=== PATIENT | male | born 1960 | race Caucasian/White ===

== ENCOUNTER 2016-09-17 18:22 | Emergency (ER) | payer MEDICARE, MEDICAID ==
--- NOTE | ~2016-09-17 | ER ---
PATIENT'S NAME: YUE HSU [facility] AGE: 56 Y [address] ROOM: [place] [address] LOCATION: [facility] ADMIT DATE: 09/17/2016 ER/Outpatient Report DISCHARGE DATE: 09/17/2016 FAMILY PHYSICIAN: Physician, Unknown ATTENDING PHYSICIAN: Andrew Rosales TIME OF ARRIVAL: 1824 hours. TIME OF EXAM: 1824 hours. CHIEF COMPLAINT: Choking episode. HISTORY OF PRESENT ILLNESS: The patient comes accompanied by employee at [facility] and reports approximately 1 hour prior to arrival, the patient was drinking boost, drank it too quickly, and then had a choking episode, that lasted approximately 10 minutes. He did not vomit at that time. He had not been ill prior to this episode. Worker reports that their policy is for him to be evaluated if he has a choking episode. She does not notice any change in his behavior at this time. ALLERGIES: ALLERGIES ARE ON HIS CHART AND REVIEWED BY ME. CURRENT MEDICATIONS: Current medications are on his chart and reviewed by me. PAST MEDICAL HISTORY: Profound mental retardation, autism, scoliosis, anemia, neurogenic bladder, and seizure disorder. SOCIAL HISTORY: He is a resident with [facility]. REVIEW OF SYSTEMS: Negative other than those mentioned in the HPI. PHYSICAL EXAMINATION: VITAL SIGNS: Pulse is 84, respirations 20, temp of 97.6, tympanic, and O2 sats are 98% on room air, he refused to be weighed. GENERAL: He is awake and alert. He is nonverbal, which is not different, according to the masonry inspector that is with him. No drooling is noted. PATIENT'S NAME: YUE HSU [facility] AGE: 56 Y [address] ROOM: [place], [place] [address] LOCATION: [facility] ADMIT DATE: 09/17/2016 ER/Outpatient Report DISCHARGE DATE: 09/17/2016 FAMILY PHYSICIAN: Physician, Unknown ATTENDING PHYSICIAN: Andrew Rosales LUNGS: His lungs sounds are clear throughout. His respirations are even and nonlabored. HEART: Tones are regular. LABORATORY DATA: Chest x-ray was completed. No acute abnormality is seen. IMPRESSION: Choking episode on liquids. PLAN: Home. Continue his current treatment plan. Follow up with primary provider in 2 to 3 days as needed. Worker verbalized understanding. ERICH AGEE APRN FOR MD JANIS ALLEN/modl /[id number] d: 09/18/16 0112 t: 09/19/16 1821, OUTPATIENT REPORT
[~2016-09-17 18:22] MED LIST: ACYCLOVIR400 MG PO; ALBUTEROL2.5 MG/31 INH; APRESOLINE25 MG PO; ATARAX25 MG PO; COLACE100 MG PO; KLONOPIN0.5 MG PO; LAMICTAL200 MG PO; MAG119MX MM; MULTIVITAMINS1 EAC1 PO; REMERON15 MG PO; SEROQUEL XR150 MG PO; SEROQUEL XR400 MG PO; TRIAMCINOLONE 015 GM TOP
[2016-12-06] MEDS ORDERED: BOOST237 ML PO (08:53)
== END 2016-09-17 18:56 | disposition disaster alternative care site (69) ==
LOC: GMED 18:22
DX: T17.928A Food in respiratory tract, part unspecified causing other injury, initial encounter (principal); F73 Profound intellectual disabilities; F84.0 Autistic disorder; M41.9 Scoliosis, unspecified; G40.909 Epilepsy, unspecified, not intractable, without status epilepticus; Z88.8 Allergy status to other drugs, medicaments and biological substances

== ENCOUNTER 2016-10-07 10:50 | Inpatient (IN) | payer MEDICARE, MEDICAID ==
[~2016-10-07] VITALS: Ht 167.6 cm; Wt 70.2 kg
--- NOTE | ~2016-10-07 | HP ---
PATIENT'S NAME: YUE HSU [facility] AGE: 56 Y [address] ROOM: [place] [address] LOCATION: [facility] ADMIT DATE: 10/07/2016 History & Physical DISCHARGE DATE: FAMILY PHYSICIAN: Cheko Sparrow MD ATTENDING PHYSICIAN: VIK LAGUERRE DATE OF SERVICE: CHIEF COMPLAINT: Cough, fever, pneumonia. HISTORY OF PRESENT ILLNESS: This is a 56-year-old male with history of severe mental retardation and lives in a facility nearby requiring full assistance at all times. is brought here by his caretakers after he was complaining of persistent cough over the past 24 hours and temperature spike with a temperature max of about 101 measured a couple times earlier in the morning. The patient's digester hand also reports that he had been showing increasing agitation over the past day or so as well. The patient is nonverbal, and does appear agitated during my evaluation but otherwise nontoxic appearing. Otherwise, there is no report of significant shortness of breath, chest pain, dizziness, lightheadedness, dysuria, frequency of urination. PAST MEDICAL HISTORY: Profound mental retardation, scoliosis, autism, generalized anxiety disorder. SOCIAL HISTORY: The patient is a resident at [facility] under their care. FAMILY HISTORY: Unable to gather due to the patient's mental status and digester hand's does not know much about his family status. REVIEW OF SYSTEMS: Cough and fever reported. Further review of systems was not able to be conducted due to patient's mental status. PHYSICAL EXAMINATION: VITAL SIGNS: Weight 45 kg, blood pressure 118/64, pulse 96, respiratory rate 20, temperature 100.4, 96% on room air. GENERAL: The patient is agitated but awake. Appears to be at baseline mental status anyway. HEENT: Moist mucous membranes. No scleral icterus. Conjunctival pallor noted. PATIENT'S NAME: YUE HSU [facility] AGE: 56 Y [address] ROOM: [place] [address] LOCATION: [facility] ADMIT DATE: 10/07/2016 History & Physical DISCHARGE DATE: FAMILY PHYSICIAN: Cheko Sparrow MD ATTENDING PHYSICIAN: VIK LAGUERRE SKIN: Without rash or lesions. CHEST: Clear to auscultation bilaterally with overall diminished breath sounds. HEART: S1, S2. Regular rate and rhythm. ABDOMEN: Soft, nontender, nondistended. Positive bowel sounds. NEUROLOGIC: Grossly nonfocal and negative for new changes but he does have contraction of his upper extremities that is chronic for him. MUSCULOSKELETAL: No joint pain, effusion, tenderness, or erythema noted. LABORATORY DATA: White blood cell count of 13.6. Chest x-ray showing possible right perihilar infiltrate. ASSESSMENT AND PLAN: 1. Pneumonia, bacterial organism unspecified. We will treat as community- acquired with doxycycline 100 mg IV b.i.d. and monitor. We will avoid to try to use any antibiotics that can potentially prolong QTc since the patient is on high-dose Seroquel. 2. Sepsis secondary to pneumonia with a white blood cell of 13.6 and temperature of 101 noted on presentation. We will manage as above. 3. Profound mental retardation. We will continue his home medications. 4. Agitation. Just somewhat increased due to his acute illness. Continue to monitor and also continue his home medications. 5. Deep venous thrombosis prophylaxis. We will use subcu Lovenox 40 mg daily. MD SHARON COOPER/soniya /[id number] D: 832 T: 431 HISTORY & PHYSICAL
--- NOTE | ~2016-10-07 | ER ---
PATIENT'S NAME: YUE HSU [facility] AGE: 56 Y [address] ROOM: [place] [address] LOCATION: [facility] [place] ADMIT DATE: 10/07/2016 ER/Outpatient Report DISCHARGE DATE: FAMILY PHYSICIAN: Cheko Sparrow MD ATTENDING PHYSICIAN: VIK MARTINEZ Time of Arrival: 1050 hours. Time Seen: 1115 hours. IDENTIFICATION: A 56-year-old male. CHIEF COMPLAINT: Fever and weakness. HISTORY OF PRESENT ILLNESS: The patient is a 56-year-old male with profound MR and autism from [facility]. The patient has had cough, nonproductive; fever; lethargy; and weakness this morning. Temperature was reported as 101. The patient has had pneumonia, requiring hospitalization in the past. The patient is nonverbal, so history was obtained from caregivers. ALLERGIES: THORAZINE, MELLARIL, AND KEFLEX. HE IS TO AVOID ERYTHROMYCIN, AZITHROMYCIN, AND BIAXIN WHILE ON SEROQUEL. CURRENT MEDICATIONS: 1. Multivitamin daily. 2. Colace 100 mg daily. 3. Albuterol nebulizer b.i.d. and q.i.d. p.r.n. 4. Triamcinolone cream b.i.d. 5. Magic mouthwash p.r.n. 6. Lamictal 200 mg b.i.d. 7. Klonopin 1 mg at h.s. 8. Remeron 15 mg at h.s. 9. Seroquel XR 150 mg at h.s. and 400 mg at h.s. 10. Vistaril 25 mg 2 tabs at h.s. MEDICAL PROBLEMS: Profound MR, autism, scoliosis, chronic constipation, anemia, pneumonia, gingivitis, neurogenic bladder, history of seizure disorder, history of rib fractures, history of generalized anxiety disorder, intermittent explosive disorder, schizophrenia, depression, tardive dyskinesia, and neurodermatitis. REVIEW OF SYSTEMS: PATIENT'S NAME: YUE HSU [facility] AGE: 56 Y [address] ROOM: [place] [address] LOCATION: [facility] [place] ADMIT DATE: 10/07/2016 ER/Outpatient Report DISCHARGE DATE: FAMILY PHYSICIAN: Cheko Sparrow MD ATTENDING PHYSICIAN: VIK MARTINEZ Unable to obtain from the patient. SOCIAL HISTORY: The patient resides at [facility]. Tobacco use, denies. Alcohol use, denies. Drug use, denies. FAMILY HISTORY: Unable to obtain from the patient. PHYSICAL EXAMINATION: VITAL SIGNS: Weight 45 kg. Blood pressure 113/64, pulse 96, respirations 20, temperature 100.4, and saturations 96% on room air. GENERAL: This is a 56-year-old male, nonverbal, who appears a little bit lethargic on an initial exam. HEENT: Head: Normocephalic, atraumatic. Ears: TMs not visualized. Eyes: Pupils equal and reactive to light and accommodation. Extraocular movements intact. Nose: Mucosa pink. No lesions. Mouth: No lesions. Pharynx benign. NECK: Supple. No lymphadenopathy. LUNGS: Diminished on the right lower. HEART: Regular rate and rhythm. ABDOMEN: Bowel sounds present. Soft, nondistended, nontender. SKIN: [place], warm, and dry. Some scabbed lesions are present on his lower extremities. No erythema. NEURO: The patient is alert. He has no focal deficit. LABORATORY DATA: Chest x-ray reveals a right perihilar infiltrate, pending Radiology over-read, is a one-view chest x-ray. Procalcitonin 0.08. Hemoglobin 14.8, hematocrit 44.4, platelets 161, and white count 13.6 with 74% segs and 13% bands. Sodium 140, potassium 4.3, chloride 106, CO2 24, BUN 13, creatinine 1, and blood sugar 122. Liver enzymes normal. Influenza A and B negative. EKG: Sinus rhythm at 90 beats per minute. No acute ST elevation. Nonspecific T-wave changes. QTc 386. IMPRESSION: Pneumonia. PLAN: Outpatient admission for IV antibiotics, as the patient does meet SIRS criteria, but not sepsis criteria and the patient is more lethargic and not his usual self according to the caregivers. Dr. Martinez, hospitalist, evaluated the patient in the emergency room and planned for admission. PATIENT'S NAME: YUE HSU [facility] AGE: 56 Y [address] ROOM: [place] [address] LOCATION: [facility] [place] ADMIT DATE: 10/07/2016 ER/Outpatient Report DISCHARGE DATE: FAMILY PHYSICIAN: Cheko Sparrow MD ATTENDING PHYSICIAN: VIK MARTINEZ MD MODE SYED/wadel /[id number] d: 10/07/162014 t: 10/11/16 0642, OUTPATIENT REPORT
--- NOTE | ~2016-10-07 | DS ---
PATIENT'S NAME: YUE HSU [facility] AGE: 56 Y [address] ROOM: [place] [address] LOCATION: [facility] [place] ADMIT DATE: 10/07/2016 Discharge Summary DISCHARGE DATE: 10/10/2016 FAMILY PHYSICIAN: Cheko Sparrow MD ATTENDING PHYSICIAN: Lori Martinez PRIMARY DIAGNOSES: 1. Sepsis. 2. Right lower lobe pneumonia. 3. Dysphagia with recurrent aspiration. 4. Acute encephalopathy. 5. Developmental delay with profound mental retardation. 6. Acute agitation. OPERATIONS/PROCEDURES: Modified barium swallow was performed 10/10/2016, which demonstrated aspiration upon swallowing, honey-consistency liquid, moderate pooling was noted partially clearing with multiple secondary swallows. HISTORY OF PRESENTING ILLNESS/REASON FOR ADMISSION: Please refer to the H and P dictated 10/07/2016. HOSPITAL COURSE: The patient was admitted to the hospital as noted above with a presumptive diagnosis of sepsis and pneumonia. He was suspected to be aspirating chronically. He was placed on broad-spectrum antibiotic therapy. His clinical condition improved. Speech Therapy was consulted and a modified barium swallow was carried out. He did have adjustments made to his dietary regimen with strict instructions to keep him elevated at 90 degrees when eating and close observation with plenty of time between bites. I did discuss at some length with the patient's [id number] regarding the possibility of feeding tube placement. He stated that this had been brought up in the past, but that they had declined it citing that they would like to avoid it unless absolutely necessary. I did discuss that he would be likely to continue to recurrently aspirate and would be at risk for rehospitalization. He expressed understanding, but reinforces his desire for no feeding tube. By the end of the 4th day of his hospital stay, it was felt he would be stable enough for discharge back to the [facility] with plans for clinical followup with his primary care provider, Dr. Sparrow. DISCHARGE INSTRUCTIONS: Diet, pureed foods, allow extra time between bites PATIENT'S NAME: YUE HSU [facility] AGE: 56 Y [address] ROOM: [place] [address] LOCATION: [facility] [place] ADMIT DATE: 10/07/2016 Discharge Summary DISCHARGE DATE: 10/10/2016 FAMILY PHYSICIAN: Cheko Sparrow MD ATTENDING PHYSICIAN: Lori Martinez with sips and double and multiple swallows up at 90 degrees for all meals. DISCHARGE MEDICATIONS: 1. Clonazepam 1 mg p.o. q.h.s. 2. Colace 100 mg p.o. daily. 3. Atarax 50 mg p.o. q.h.s. 4. Lamictal 200 mg p.o. b.i.d. 5. Remeron 15 mg p.o. q.h.s. 6. Multivitamin daily. 7. Seroquel 400 mg p.o. q.h.s. and 150 mg at h.s. additionally. 8. Albuterol per nebulizer b.i.d. 9. Triamcinolone cream applied topically b.i.d. p.r.n. 10. Magic Mouthwash t.i.d. before meals. 11. Levofloxacin 750 mg p.o. daily x5 more days. 12. Probiotic daily while on antibiotics. FOLLOW UP: He will follow up with Dr. Sparrow in 3 days. CONDITION ON DISCHARGE: Fair. Total time spent on discharge process was 60 minutes. MD FELIPA FIGUEROA/wadel /[id number] d: 10/14/16 0510 t: 10/24/16 2359, DISCHARGE SUMMARY
[2016-10-07 11:42] LABS: HEMATOCRIT 44.4 % (37.0-53.0); HEMOGLOBIN 14.8 g/dL (12.0-17.0); MCH 30.5 pg (27.0-34.0); MCHC 33.3 gm/dL (32.0-36.5); MCV 91.4 fl (83.0-98.0); MPV 9.5 fl (9.4-12.4); PLATELET COUNT 161 K/uL (150-450); RBC 4.86 M/uL (4.00-6.00); RDW-CV 12.7 % (11.9-14.6); WBC 13.6 K/uL (4.0-11.0)
[2016-10-07 12:06] LABS: ALBUMIN 3.2 gm/dL (3.5-5.0); ALK PHOS 82 IU/L (33-138); ALT 32 IU/L (12-78); ANION GAP 14.3 (10.0-19.0); AST 26 IU/L (10-40); BLOOD UREA NITROGEN 13 mg/dL (6-24); CALCIUM 8.4 mg/dL (8.5-10.5); CHLORIDE 106 mMol/L (96-110); CO2 24 mMol/L (22-32); ESTIMATED GFR (MDRD EQUATION) > 60; POTASSIUM 4.3 mMol/L (3.7-5.1); SODIUM 140 mMol/L (135-145); TOTAL BILIRUBIN 0.2 mg/dL (0.0-1.5); TOTAL PROTEIN 7.1 g/dL (6.0-8.4)
[2016-10-07 12:22] LABS: ABSOLUTE NEUTROPHIL CT (ANC) 11.8 K/uL (1.4-9.0); BANDED NEUTROPHIL # 1.8 K/uL (0.0-0.1); BANDED NEUTROPHILS % 13 %; LYMPHOCYTE # 0.3 K/uL (0.8-4.0); LYMPHOCYTE % 2 %; MONOCYTE # 1.5 K/uL (0.0-1.0); SEGMENTED NEUTROPHIL # 10.1 K/uL (1.4-9.0); SEGMENTED NEUTROPHIL % 74 %
--- NOTE | 2016-10-07 14:56 | NUR ---
D: pt admitted from ER for possible aspiration pneumonia. [facility] and is non-verbal. Hx given by caregiver. Pt has anxiety, depression, ADHD, schitzophrenia, autism, Mental delay, fatty liver, multiple aspiration pneumonia admissions in the past, neurogenic bladder, hx of rib fx, seizures, anorexia, anemia, constipation, sleep pattern disorder, and is on a mechanical soft thicken liquid diet. 1 assist to ambulate. Pt is constantly moving his arms and legs/caregiver states that is normal. Crush pills.
--- NOTE | 2016-10-07 16:37 | NUR ---
D: pt non-verbal. No skin issues, no void yet. Bed alarm on for safety. Mechanical soft thicken liquid diet. Started IVF and IVATB. Caregivers here at intervals. O2 sat 81% on room air, placed on 2 liters O2.
[2016-10-08 05:04] LABS: BASOPHIL # 0.1 K/uL (0.0-0.2); BASOPHIL % 0.5 %; EOSINOPHIL % 0.2 %; HEMATOCRIT 46.5 % (37.0-53.0); HEMOGLOBIN 15.6 g/dL (12.0-17.0); IMMATURE GRANULOCYTE % 0.4 %; LYMPHOCYTE # 1.3 K/uL (0.8-4.0); LYMPHOCYTE % 12.5 %; MCH 30.4 pg (27.0-34.0); MCHC 33.5 gm/dL (32.0-36.5); MCV 90.6 fl (83.0-98.0); MONOCYTE # 1.1 K/uL (0.0-1.0); MONOCYTE % 10.5 %; MPV 9.5 fl (9.4-12.4); NEUTROPHIL % 75.9 %; NRBC % 0 /100WBC (0-0.00); PLATELET COUNT 191 K/uL (150-450); RBC 5.13 M/uL (4.00-6.00); RDW-CV 12.5 % (11.9-14.6); WBC 10.5 K/uL (4.0-11.0)
--- NOTE | 2016-10-08 05:19 | NUR ---
Pt. alert but not oriented. Nonverbal. O2 sats dip below 90 at times but oxygen is hard to keep on pt. IV in R) arm with fluids going. Intermittant IV antibx. Did not sleep at all last night. Inc. through shift with 2 full bed changes. Ate all of dinner. Caregiver left after supper.
[2016-10-08 05:20] LABS: ALBUMIN 3.3 gm/dL (3.5-5.0); ANION GAP 12.1 (10.0-19.0); BLOOD UREA NITROGEN 15 mg/dL (6-24); CALCIUM 8.6 mg/dL (8.5-10.5); CHLORIDE 105 mMol/L (96-110); CO2 26 mMol/L (22-32); CREATININE 0.9 mg/dL (0.6-1.3); ESTIMATED GFR (MDRD EQUATION) > 60; PHOSPHORUS 2.5 mg/dL (2.5-4.9); POTASSIUM 4.1 mMol/L (3.7-5.1); SODIUM 139 mMol/L (135-145)
[2016-10-08 13:49] LABS: BILIRUBIN URINE NEGATIVE (NEGATIVE); BLOOD URINE 250 /UL (NEGATIVE); COLOR URINE YELLOW (YELLOW); GLUCOSE URINE NEGATIVE (NEGATIVE); KETONE URINE 15 mg/dL (NEGATIVE); LEUKOCYTES URINE NEGATIVE /UL (NEGATIVE); NITRITE URINE NEGATIVE (NEGATIVE); PROTEIN URINE 100 mg/dL (NEGATIVE); SPEC GRAVITY URINE 1.025 (1.003-1.035); TURBIDITY URINE 2+ (CLEAR); UROBILINOGEN URINE NORMAL (NORMAL)
[2016-10-08 14:08] LABS: BACTERIA URINE MODERATE (NEGATIVE); EPITHELIAL URINE 0-2 #/HPF (NEGATIVE); MUCUS URINE 1+ (NEGATIVE); RBC URINE FULL FIELD #/HPF (NEGATIVE); WBC URINE 0-2 #/HPF (NEGATIVE)
--- NOTE | 2016-10-08 15:47 | NUR ---
Significant Event: Pt non-verbal and agitated when touched. Pulls at IV's and O2 tubing, new order for wrist restraints started at 1030, pt checked on frequently. Temp at 0730 was 103.1 axillary, notified. Tylenol rectal given at 0830 (down to 97.9 axillary), NPO, speech eval/swallow study (possible aspiration), chest xray, EKG, blood cultures, labs (see orders), norton placement (1030), seroquel 50mg PO x1, UA, 2nd IVATB initiated, zyprexa IM x1 (1300). Digitally removed a large amt of firm stool from rectum then pt was inc another large soft bm. Pt digs at rectum. Pt moved to room 3218 to be closer to nurse's station. IV infiltrated this am, 2 new IV started to left arm. O2 sat 83% on room air. Has an occasional wet non-productive cough. Lungs sounds coarse. MBS monday. Care givers here intermittently. Follow up:
--- NOTE | 2016-10-09 03:08 | NUR ---
Significant Event: Patient alert. Non verbal. Yells out sometimes. Became very agitated around 2344 and was combative and uncooperative. Dr. Fitch came and helped and order total of 5mg haldol, 5mg zyprexa, and 6mg ativan given while patient was restless. Wrist restraints still on. Attempts to pull at lines. LR running at 150 and intermittnet KEITH. 2 liters oxygen. Placed on ETCO2 after all meds given. From [place]. Caregiver left at 191. Cuellar in place. NPO. Follow up: Monitor agitatoin
[2016-10-09 05:47] LABS: BASOPHIL % 0.2 %; EOSINOPHIL % 0.1 %; HEMATOCRIT 39.3 % (37.0-53.0); HEMOGLOBIN 13.4 g/dL (12.0-17.0); IMMATURE GRANULOCYTE % 0.2 %; MCH 30.5 pg (27.0-34.0); MCHC 34.1 gm/dL (32.0-36.5); MCV 89.5 fl (83.0-98.0); MONOCYTE # 1.2 K/uL (0.0-1.0); MPV 9.5 fl (9.4-12.4); NEUTROPHIL # (ANC) 9.9 K/uL (1.4-9.0); NEUTROPHIL % 81.5 %; NRBC % 0 /100WBC (0-0.00); PLATELET COUNT 171 K/uL (150-450); RBC 4.39 M/uL (4.00-6.00); RDW-CV 12.2 % (11.9-14.6); WBC 12.1 K/uL (4.0-11.0)
[2016-10-09 05:57] LABS: ANION GAP 9.4 (10.0-19.0); BLOOD UREA NITROGEN 11 mg/dL (6-24); CALCIUM 8.1 mg/dL (8.5-10.5); CHLORIDE 109 mMol/L (96-110); CO2 27 mMol/L (22-32); CREATININE 0.7 mg/dL (0.6-1.3); ESTIMATED GFR (MDRD EQUATION) > 60; POTASSIUM 3.4 mMol/L (3.7-5.1); SODIUM 142 mMol/L (135-145)
--- NOTE | 2016-10-09 16:00 | NUR ---
Significant Event: Pt non-verbal, slightly agitated but most calm this shift. Continues in bilaterial wrist restraints as he pulls at his IV tubing and catheter. Ambulated in kat x1 with staff, unsteady 2 assist. Finally fell asleep late this afternoon. Pureed diet ordered. LR @ 50ml/hr and IV K+ given. Has been on room air. Wet non-productive cough. Bagbath given. Follow up:
--- NOTE | 2016-10-10 04:47 | NUR ---
Significant Event: Pt non-verbal. Hx of schizophrenia, seizures, cognitive impairment. Pt in bilateral wrist restraints d/t pulling at lines. Cuellar patent and remains in place. Pt became very agitated around 2330. Gave 5mg IM zyprexa, with results. Does still have some yelling out and kicking legs, but settles down fast. ODT zyprexa on computer if needed. PIV LFA, LR @ 50; int ABx. Q2H turns. Meds crushed in applesauce or pudding. Pt will slide down in bed. Spoke to Dr. Fitch and got seroquel order increased to home dose of 550mg qhs. Took end of bed off d/t pt hitting feet on edge. If pt gets up to walk, possibly add leather etcher so that bed alarm can be put on. Follow up: Continue plan of care.
[2016-10-10 05:08] LABS: BASOPHIL % 0.1 %; EOSINOPHIL # 0.1 K/uL (0.0-0.5); EOSINOPHIL % 0.9 %; HEMATOCRIT 37.1 % (37.0-53.0); HEMOGLOBIN 12.7 g/dL (12.0-17.0); IMMATURE GRANULOCYTE % 0.2 %; LYMPHOCYTE # 1.6 K/uL (0.8-4.0); LYMPHOCYTE % 16.3 %; MCH 30.2 pg (27.0-34.0); MCHC 34.2 gm/dL (32.0-36.5); MCV 88.1 fl (83.0-98.0); MONOCYTE % 10.4 %; MPV 9.2 fl (9.4-12.4); NEUTROPHIL # (ANC) 6.9 K/uL (1.4-9.0); NEUTROPHIL % 72.1 %; NRBC % 0 /100WBC (0-0.00); PLATELET COUNT 180 K/uL (150-450); RBC 4.21 M/uL (4.00-6.00); RDW-CV 12.2 % (11.9-14.6); WBC 9.5 K/uL (4.0-11.0)
[2016-10-10 05:24] LABS: ANION GAP 8.7 (10.0-19.0); BLOOD UREA NITROGEN 10 mg/dL (6-24); CHLORIDE 109 mMol/L (96-110); CO2 27 mMol/L (22-32); CREATININE 0.6 mg/dL (0.6-1.3); ESTIMATED GFR (MDRD EQUATION) > 60; POTASSIUM 3.7 mMol/L (3.7-5.1); SODIUM 141 mMol/L (135-145)
--- NOTE | 2016-10-10 14:00 | NUR ---
Notified by Rose Post APRN at 1240 that patient is ready to be discharged back to [facility]. I placed a phone call to his legal guardian Brandyn Hall and informed him of the plan to transfer back to [facility] today. I contacted [facility] at [phone] and informed them that he is ready for discharge. Made arrangements for transfer back to [facility] at 1430 today. Phone call from Christa with [facility] at [phone] asking for discharge orders to be faxed to her. Arrived on the floor at 1350 and discharge orders were being completed by Rose Post and Dr. Ovalle. Orders faxed to Christa at [facility] at [phone]- fax number is [phone]. No other discharge needs.
--- NOTE | 2016-10-10 14:07 | NUR ---
TRANSFER NOTE: Pt. is d/c'ing back to [facility] in [place]. Admitted for pneumonia. Pt. was in bilateral wrist restraints for day due to patient attempting to remove lines and norton. PRN Zyprexa Zytis given this AM approximately 1030 for agitation. Caregiver in room all of shift. Modified barium swallow this AM. Meds given crushed in applesauce. PIV infiltrated and a new IV placed in R)FA that was d/c'd prior to discharge. Intermittent IV antibiotics given: doxycycline and merepenem. Turned every 2 hours. Pt was hitting feet on end of bed at night so bed stamp collector was placed this AM. B/P and pulse elevated this morning due to agitation but WNL during afternoon reassessment. Pt. is nonverbal, autistic. On seizure precautions and seizure pads in place. Bag bath given on 10/09. Patient on RA. Ate 100% of breakfast, 50% of lunch. On pureed, nectar thick diet. Must be elevated to 90 degrees for pills, drinks, and food. Plan for d/c at 1430 to [facility] in [place].
[2016-12-06] MEDS ORDERED: BOOST237 ML PO (08:53)
== END 2016-10-10 15:59 | disposition disaster alternative care site (69) | DRG 871 ==
LOC: GMED 10:50 → GMSU 13:38
PROVIDERS: Family Medicine; Internal Medicine; ADMIT Internal Medicine
DX: A41.9 Sepsis, unspecified organism (principal); G93.41 Metabolic encephalopathy; J69.0 Pneumonitis due to inhalation of food and vomit; E46 Unspecified protein-calorie malnutrition; R13.10 Dysphagia, unspecified; F84.0 Autistic disorder; F20.9 Schizophrenia, unspecified; M41.9 Scoliosis, unspecified; F88 Other disorders of psychological development; R45.1 Restlessness and agitation; K59.09 Other constipation; F41.1 Generalized anxiety disorder; Z78.1 Physical restraint status
CPT/HCPCS: J1630; J1650; J2060; J2185; J3480; J7030; J7040; J7050; J7060; J7120

== ENCOUNTER 2016-10-15 08:00 | Emergency (ER) | payer MEDICARE, MEDICAID ==
--- NOTE | ~2016-10-15 | ER ---
PATIENT'S NAME: YUE HSU [facility] AGE: 56 Y [address] ROOM: [place] [address] LOCATION: [facility] ADMIT DATE: 10/15/2016 ER/Outpatient Report DISCHARGE DATE: 10/15/2016 FAMILY PHYSICIAN: Physician, Unknown ATTENDING PHYSICIAN: Min Maguire Time of Arrival: 0758 hours. Time of Evaluation: 0758 hours. CHIEF COMPLAINT: Cough and vomiting. HISTORY OF PRESENT ILLNESS: The patient is a 56-year-old male, who presents to the emergency department today with a chief complaint of cough and vomiting. The patient does have a history of profound MR and autism, is from [facility]. The patient does have a history of aspiration pneumonia. The staff became concerned when he had small episodes of vomiting today and has had a cough. It has been nonproductive. There are no fevers. There is no lethargy, has been acting his normal self. No chills. No other nausea or vomiting other than one episode. Denies any diarrhea or constipation. No blood in his stool. No dark tarry stools. PAST MEDICAL HISTORY: 1. Profound MR. 2. Autism. 3. Scoliosis. 4. Chronic constipation. 5. Anemia. 6. Pneumonia. 7. Gingivitis. 8. Neurogenic bladder. 9. History of seizure disorder. 10. History of rib fractures. 11. Generalized anxiety disorder. 12. Intermittent explosive disorder. 13. Schizophrenia. 14. Depression. 15. Tardive dyskinesia. 16. Neurodermatitis. PAST SURGICAL HISTORY: None reported. SOCIAL HISTORY: PATIENT'S NAME: YUE HSU [facility] AGE: 56 Y [address] ROOM: [place] [address] LOCATION: ED ADMIT DATE: 10/15/2016 ER/Outpatient Report DISCHARGE DATE: 10/15/2016 FAMILY PHYSICIAN: Physician, Unknown ATTENDING PHYSICIAN: Min Maguire The patient denies any tobacco, alcohol, or illicit drug use. ALLERGIES: THORAZINE, MELLARIL, AND KEFLEX. HE IS ALSO TO AVOID ERYTHROMYCIN, AZITHROMYCIN, AND BIAXIN WHILE ON SEROQUEL. MEDICATIONS: Please see list. PRIMARY CARE DOCTOR: Dr. Sparrow. REVIEW OF SYSTEMS: All systems are reviewed by myself are negative with the exception of those discussed in HPI and past medical history. PHYSICAL EXAMINATION: VITAL SIGNS: Weight 43.8 kg. Blood pressure 166/75, pulse 76, respiratory rate 20, temperature 96.8, and oxygen saturation 95% on room air. GENERAL: The patient is a 56-year-old male, who appears stated age. He is nonverbal. He is moving. HEENT: Normocephalic and atraumatic. Pupils are equal, round, and reactive to light and accommodation. Extraocular motions are intact. Nares are patent bilaterally. Oropharynx is clear. NECK: Supple. There is no nuchal rigidity. CARDIOVASCULAR: Regular rate and rhythm. No murmurs, rubs, or gallops. LUNGS: Clear to auscultation bilaterally. No wheezes, rales, or rhonchi. ABDOMEN: Soft, nontender, and nondistended. No rebound, rigidity, or guarding. MUSCULOSKELETAL: The patient moves all 4 extremities. SKIN: Warm and dry. LABORATORY DATA AND IMAGING STUDIES: Labs and x-rays are obtained: CBC is normal. CMP is unremarkable. LFTs are normal. Lactate 0.3. Two view chest x-ray shows no acute process, was interpreted by myself. Procalcitonin is less than 0.05. IMPRESSION: 1. Cough with history of chronic aspiration. 2. Vomiting x1. 3. Profound MR. 4. Initial visit. EMERGENCY DEPARTMENT COURSE: The patient was brought back to the examination room. Seen and evaluated by PATIENT'S NAME: YUE HSU [facility] AGE: 56 Y [address] ROOM: [place], [place] [address] LOCATION: [facility] ADMIT DATE: 10/15/2016 ER/Outpatient Report DISCHARGE DATE: 10/15/2016 FAMILY PHYSICIAN: Physician, Unknown ATTENDING PHYSICIAN: Min Maguire myself. Laboratory analysis and imaging were obtained as described above. The patient's oxygenation is good. The patient is nonverbal. His workup was unremarkable. The staff member from [facility] reports that he is at his baseline. The patient did recently have a swallow study. After admission to the hospital for aspiration pneumonia, he does have what appears to be concern for chronic aspiration. He is currently afebrile with minimal symptoms of oxygen with normal oxygenation and vital signs. He has a normal laboratory workup as well as chest x-ray. He will need further evaluation and treatment by primary care doctor in 2 to 3 days. I have discussed return to care instructions with the staff member including fevers, chills, troubles breathing, or any other concerns to return to the emergency department for re- evaluation. He is agreeable without further questions at this time. DISPOSITION: The patient was discharged to home under the care of the [facility] in stable condition. DO TAYLOR SIMPSON/modl /[id number] d: 10/15/16 1627 t: 10/26/16 0639, OUTPATIENT REPORT
[~2016-10-15 08:00] MED LIST changes: -BOOST237 ML PO
[2016-10-15 08:20] LABS: BASOPHIL % 0.2 %; EOSINOPHIL # 0.3 K/uL (0.0-0.5); EOSINOPHIL % 2.8 %; HEMATOCRIT 41.4 % (37.0-53.0); IMMATURE GRANULOCYTE % 0.2 %; LYMPHOCYTE # 2.2 K/uL (0.8-4.0); LYMPHOCYTE % 22.7 %; MCH 30.9 pg (27.0-34.0); MCHC 33.8 gm/dL (32.0-36.5); MCV 91.4 fl (83.0-98.0); MONOCYTE % 10.7 %; MPV 8.7 fl (9.4-12.4); NEUTROPHIL # (ANC) 6.2 K/uL (1.4-9.0); NEUTROPHIL % 63.4 %; NRBC % 0 /100WBC (0-0.00); RBC 4.53 M/uL (4.00-6.00); WBC 9.7 K/uL (4.0-11.0)
[2016-10-15 08:22] LABS: PLATELET COUNT 358 K/uL (150-450)
[2016-10-15 08:39] LABS: ALBUMIN 2.8 gm/dL (3.5-5.0); ALK PHOS 86 IU/L (33-138); ALT 39 IU/L (12-78); AST 36 IU/L (10-40); BLOOD UREA NITROGEN 22 mg/dL (6-24); CALCIUM 8.8 mg/dL (8.5-10.5); CHLORIDE 112 mMol/L (96-110); CO2 30 mMol/L (22-32); ESTIMATED GFR (MDRD EQUATION) > 60; POTASSIUM 3.7 mMol/L (3.7-5.1)
[2016-10-15 08:43] LABS: ANION GAP 7.7 (10.0-19.0); SODIUM 146 mMol/L (135-145); TOTAL BILIRUBIN 0.3 mg/dL (0.0-1.5)
[2016-12-06] MEDS ORDERED: BOOST237 ML PO (08:53)
== END 2016-10-15 10:34 | disposition disaster alternative care site (69) ==
LOC: GMED 08:00
PROVIDERS: Emergency Medicine
DX: R05 Cough (principal); R11.10 Vomiting, unspecified; F84.0 Autistic disorder; F73 Profound intellectual disabilities; F41.8 Other specified anxiety disorders; K59.09 Other constipation; D64.9 Anemia, unspecified; F20.9 Schizophrenia, unspecified; Z88.8 Allergy status to other drugs, medicaments and biological substances; Z88.1 Allergy status to other antibiotic agents

== ENCOUNTER → 2016-10-15 | Outpatient (CLI) | payer MEDICARE, MEDICAID ==
[~2016-10-15] MED LIST changes: +BOOST237 ML PO
== END | disposition disaster alternative care site (69) ==
LOC: GAMB 07:40
DX: R53.1 Weakness (principal); F84.0 Autistic disorder; M41.9 Scoliosis, unspecified; F90.9 Attention-deficit hyperactivity disorder, unspecified type; J69.0 Pneumonitis due to inhalation of food and vomit; R05 Cough; Z79.899 Other long term (current) drug therapy
CPT/HCPCS: A0425; A0429

== ENCOUNTER 2016-10-29 18:56 | Emergency (ER) | payer MEDICARE, MEDICAID ==
--- NOTE | ~2016-10-29 | ER ---
PATIENT'S NAME: YUE HSU [facility] AGE: 56 Y [address] ROOM: [place] [address] LOCATION: [facility] ADMIT DATE: 10/29/2016 ER/Outpatient Report DISCHARGE DATE: 10/29/2016 FAMILY PHYSICIAN: Cheko Sparrow MD ATTENDING PHYSICIAN: Ashley Dowd Time of Arrival: 1856 hours. Time of Evaluation: 1908 hours. IDENTIFICATION: A 56-year-old male. CHIEF COMPLAINT: Decreased urine output. HISTORY OF PRESENT ILLNESS: The patient is a 56-year-old male with profound MR and autism from [facility]. His last urination was earlier this morning. No other problems or concerns. No nausea or vomiting. PAST MEDICAL HISTORY: ALLERGIES: TO THORAZINE, MELLARIL, AND KEFLEX. HE IS TO AVOID ERYTHROMYCIN, AZITHROMYCIN, AND BIAXIN WHILE ON SEROQUEL. CURRENT MEDICATIONS: 1. Multivitamin daily. 2. Colace 100 mg daily. 3. Albuterol nebulizer b.i.d. 4. Triamcinolone b.i.d. 5. Lamictal 200 mg b.i.d. 6. Klonopin 1 mg at bedtime. 7. Remeron 15 mg at bedtime. 8. Seroquel XR 550 mg at bedtime. 9. Vistaril 25 mg 2 tablets at bedtime. MEDICAL PROBLEMS: Profound MR, autism, scoliosis, COPD, anemia, pneumonia, gingivitis, neurogenic bladder, history of seizure disorder, history of rib fractures, history of generalized anxiety disorder, intermittent explosive disorder, schizophrenia, depression, tardive dyskinesia, and neurodermatitis. The patient recently hospitalized, October 07 to the for sepsis and right lower lobe pneumonia, dysphagia with recurrent aspiration, and acute encephalopathy. PATIENT'S NAME: YUE HSU [facility] AGE: 56 Y [address] ROOM: [place] [address] LOCATION: [facility] ADMIT DATE: 10/29/2016 ER/Outpatient Report DISCHARGE DATE: 10/29/2016 FAMILY PHYSICIAN: Cheko Sparrow MD ATTENDING PHYSICIAN: Ashley Dowd PRIOR SURGERIES: Unable to obtain from the patient. SOCIAL HISTORY: The patient resides at [facility]. Tobacco use, denies. Alcohol use, denies. Drug use, denies. FAMILY HISTORY: Unable to obtain from the patient. REVIEW OF SYSTEMS: Unable to obtain from the patient. PHYSICAL EXAMINATION: VITAL SIGNS: Weight 45.7 kg. Blood pressure 132/79, pulse 78, respirations 18, temperature 98.2, and saturations 94%. GENERAL: A 56-year-old male, in no acute distress. HEENT: Unremarkable. LUNGS: Clear to auscultation. HEART: Regular rate and rhythm. ABDOMEN: Bowel sounds present. Soft, nondistended. Tender to palpation, suprapubic. No rebound or guarding. No CVA tenderness. SKIN: [place], warm, and dry. NEURO: No focal deficit. EMERGENCY DEPARTMENT COURSE: Bladder scan revealed 638 mL. I did discuss this with the caregiver. At this point, we are going to straight cath him to empty his bladder rather than leaving indwelling catheter in as this patient probably will not tolerate that and will not leave that in place. Straight cath UA, returns 975 mL of urine, specific gravity 1.010, pH 7, 10 to 20 white cells, 0 to 2 red cells, 0 to 2 epithelial cells, negative bacteria. Urine culture pending. IMPRESSION: 1. Urinary retention. 2. Urinary tract infection. PLAN: Bactrim DS b.i.d. for 3 days. Follow up with Dr. Sparrow next week. Follow up sooner if any problems or concerns. The patient's caregiver understands and agrees, and all questions have been answered. PATIENT'S NAME: YUE HSU [facility] AGE: 56 Y [address] ROOM: [place] [address] LOCATION: [facility] ADMIT DATE: 10/29/2016 ER/Outpatient Report DISCHARGE DATE: 10/29/2016 FAMILY PHYSICIAN: Cheko Sparrow MD ATTENDING PHYSICIAN: Ashley Dowd MD CAR/modl /[id number] d: 10/30/16612 t: 10/31/160, OUTPATIENT REPORT
[2016-10-29 20:08] LABS: BILIRUBIN URINE NEGATIVE (NEGATIVE); BLOOD URINE NEGATIVE /UL (NEGATIVE); COLOR URINE YELLOW (YELLOW); GLUCOSE URINE NEGATIVE (NEGATIVE); KETONE URINE NEGATIVE (NEGATIVE); LEUKOCYTES URINE 25 /UL (NEGATIVE); NITRITE URINE NEGATIVE (NEGATIVE); PROTEIN URINE NEGATIVE (NEGATIVE); UROBILINOGEN URINE NORMAL (NORMAL)
[2016-10-29 20:18] LABS: TURBIDITY URINE 1+ (CLEAR)
[2016-10-29 20:29] LABS: EPITHELIAL URINE 0-2 #/HPF (NEGATIVE); RBC URINE 0-2 #/HPF (NEGATIVE)
[2016-10-29 20:30] LABS: AMORPHOUS URINE 2+ (NEGATIVE)
[2016-10-29 20:31] LABS: BACTERIA URINE NEGATIVE (NEGATIVE)
[2016-12-06] MEDS ORDERED: BOOST237 ML PO (08:53)
== END 2016-10-29 21:13 | disposition disaster alternative care site (69) ==
LOC: GMED 18:56
PROVIDERS: Family Medicine
DX: N39.0 Urinary tract infection, site not specified (principal); R33.9 Retention of urine, unspecified; J44.9 Chronic obstructive pulmonary disease, unspecified; D64.9 Anemia, unspecified; I34.0 Nonrheumatic mitral (valve) insufficiency; F84.0 Autistic disorder; F20.9 Schizophrenia, unspecified; F32.9 Major depressive disorder, single episode, unspecified; G24.9 Dystonia, unspecified; G93.40 Encephalopathy, unspecified; F63.81 Intermittent explosive disorder; M41.9 Scoliosis, unspecified; N31.9 Neuromuscular dysfunction of bladder, unspecified; Z86.59 Personal history of other mental and behavioral disorders; Z86.19 Personal history of other infectious and parasitic diseases; Z87.01 Personal history of pneumonia (recurrent); Z88.1 Allergy status to other antibiotic agents; Z88.8 Allergy status to other drugs, medicaments and biological substances; Z79.899 Other long term (current) drug therapy; Z87.81 Personal history of (healed) traumatic fracture

== ENCOUNTER → 2016-12-09 | Day surgery (SDC) | payer MEDICARE, MEDICAID ==
[~2016-12-09] VITALS: Ht 167.6 cm; Wt 45.5 kg
[~2016-12-09] MED LIST changes: +BOOST237 ML PO
--- NOTE | ~2016-12-09 | OR ---
PATIENT'S NAME: YUE [facility]SU [facility] AGE: 56 Y [address] ROOM: [place], [place] [address] [place] [facility] [place]: 12/09/2016 OR/Procedure Report DISCHARGE DATE: FAMILY PHYSICIAN: Cheko Sparrow MD ATTENDING PHYSICIAN: Lilliam Delatorre SURGEON: Lilliam Delatorre DDS AIRPLANE ENGINEER: Inez Nj. DATE OF PROCEDURE: 12/09/2016 PREOPERATIVE DIAGNOSIS: Repair of carious lesions with or without extractions. POSTOPERATIVE DIAGNOSIS: Carious lesions repaired without extraction. OPERATION PERFORMED: Repair of carious lesions with or without extraction. DESCRIPTION OF PROCEDURE: The patient arrived at outpatient in good health and n.p.o. The patient is mentally challenged and cannot cooperate for treatment in the office. There was a presurgical consultation with his brake engineer, and all questions were answered. The patient was taken to the OR. In the supine position, the patient was prepped and draped in the usual manner. The patient was nasally intubated and administered general anesthesia. An IV was placed prior to the intubation. A throat pack and Isodry were placed to occlude the pharynx and as a mouth prop. Three bitewings, 2 occlusal radiographs, an oral exam, and adult prophy with scaling using the Cavitron were completed. The oral rehab was as follows: # 3, replaced stainless steel crown, #4. 30, replaced stainless steel crown, #5. The stainless steel crowns were 3M [employer] and were cemented with GC Fuji one glass ionomer cement. The excess cement was removed. The patient received 30 mg of Toradol IV to relieve postop discomfort. The mouth was then rinsed, and the throat pack and Isodry were removed. 3M MUSA Vanish 5% sodium fluoride varnish was applied to all dentition. Blood loss was minimal. The patient tolerated the procedure well and was transferred to Recovery in good and stable condition. There was a postsurgical consultation with his brake engineer, and all questions were answered. LILLIAM DELATORRE DDS TLP/modl /[id number] d: 12/09/16 1808 t: 12/12/16807, OPERATIVE SUMMARY
== END ==
LOC: GPOC 12-06 08:00 → GSDC 07:00
PROC: 0CRXXJ1 Replacement of Lower Tooth, Multiple, with Synthetic Substitute, External Approach (ICD-10-PCS; principal; 2016-12-09)
PROC: 0CRWXJ1 Replacement of Upper Tooth, Multiple, with Synthetic Substitute, External Approach (ICD-10-PCS; 2016-12-09)
DX: K02.9 Dental caries, unspecified (principal); K59.00 Constipation, unspecified; F90.9 Attention-deficit hyperactivity disorder, unspecified type; F41.9 Anxiety disorder, unspecified; D64.9 Anemia, unspecified; Z88.8 Allergy status to other drugs, medicaments and biological substances; Z88.1 Allergy status to other antibiotic agents; Z79.899 Other long term (current) drug therapy
CPT/HCPCS: J2405; J7030